=== PATIENT | female | born 1950 | race American Indian/Alaskan Native ===

== ENCOUNTER 2017-08-01 13:49 | Inpatient (IN) | payer MEDICARE, MEDICAID, OTHER ==
[~2017-08-01] VITALS: Ht 170.2 cm; Wt 119.1 kg
[~2017-08-01 13:49] MED LIST: ASPI81TA46 PO; CHOL100025 PO; DOXE25CA3 PO; FEBU80TA PO; LORA1TAB PO; MAGN500C16 PO; METO-411 PO; NORCO10T PO; POTA8TAB8 PO; ZOLP5TAB8 PO
[2017-08-01] MEDS ORDERED: normal saline 1000ML IV soln IVB ONE (13:55)
[2017-08-01] MEDS ORDERED: ondansetron/PF 4mg/2ml inj IV ONE (14:30)
[2017-08-01 14:31] LABS: BASOPHILS # (AUTO) 0.1 X10'3 (0-0.2); BASOPHILS % (AUTO) 0.5 % (0-1); EOSINOPHILS # (AUTO) 0.4 X10'3 (0-0.9); HEMOGLOBIN 12.1 g/dl (12.0-16.0); LYMPHOCYTES # (AUTO) 2.9 X10'3 (1.1-4.8); LYMPHOCYTES % (AUTO) 24.8 % (21-51); MEAN CORPUSCULAR HEMOGLOBIN 29.5 PG (27.0-31.0); MEAN CORPUSCULAR HGB CONC 33.7 % (33.0-36.5); MEAN CORPUSCULAR VOLUME 87.6 FL (78-98); MEAN PLATELET VOLUME 8.5 FL (7.4-10.4); MONOCYTES # (AUTO) 0.9 X10'3 (0-0.9); MONOCYTES % (AUTO) 7.4 % (2-12); NEUTROPHILS # (AUTO) 7.6 X10'3 (1.8-7.7); NEUTROPHILS % (AUTO) 64.3 % (42-75); PLATELET COUNT 328 X10'3 (140-440); RED CELL DISTRIBUTION WIDTH 14.9 % (11.5-14.5); WHITE BLOOD COUNT 11.8 X10'3 (4.5-11.0)
[2017-08-01 14:42] LABS: CLARITY,URINE CLEAR (Clear); COLOR,URINE YELLOW (Yellow); GLUCOSE, URINE NEGATIVE (Neg); KETONES,URINE NEGATIVE (Neg); LEUKOCYTE ESTERASE ,URINE NEGATIVE (Neg); NITRITES, URINE NEGATIVE (Neg); OCCULT BLOOD,URINE NEGATIVE (Neg); PH,URINE 5.5 (4.8-8.0); PROTEIN,URINE NEGATIVE (Neg); UROBILINOGEN,URINE 0.2 E.U/dL (0.2-1.0)
[2017-08-01 14:47] LABS: UA COLLECTION TYPE OTHER
[2017-08-01 14:55] LABS: ALANINE AMINOTRANSFERASE 21 U/L (12-78); ALBUMIN 3.1 G/DL (3.4-5.0); ALBUMIN/GLOBULIN RATIO 0.7 (1.1-1.5); ALKALINE PHOSPHATASE 83 IU/L (46-116); ANION GAP 6 (8-16); ASPARTATE AMINO TRANSFERASE 13 U/L (10-37); BILIRUBIN,TOTAL 0.5 MG/DL (0.1-1.0); BLOOD UREA NITROGEN 20 MG/DL (7-18); BUN/CREATININE RATIO 14.7 (6.6-38.0); CALCIUM 9.2 MG/DL (8.5-10.1); CHLORIDE 105 MMOL/L (99-107); CREATININE 1.36 MG/DL (0.40-0.90); GLUCOSE 110 MG/DL (70-104); LIPASE 90 U/L (73-393); POTASSIUM 4.2 MMOL/L (3.5-5.1); SODIUM 142 MMOL/L (135-145); TOTAL CARBON DIOXIDE 30.6 MMOL/L (24-32); TOTAL PROTEIN 7.7 G/DL (6.4-8.2); TROPONIN I < 0.04 NG/ML (0.0-0.05); eGFR 39 ML/MIN
[2017-08-01] MEDS ORDERED: LORazepam 2 mg/ml vial IV ONE (15:45)
[2017-08-01] MEDS ORDERED: diltiazem 5mg/ml 5ml inj. IV ONE (18:10)
[2017-08-01] MEDS: sodium chloride 0.45% 1,000 ML IV SCH (18:23)
[2017-08-01] MEDS ORDERED: magnesium hydroxide 30ml (MOM) UD suspension PO PRN (18:25)
[2017-08-01] MEDS ORDERED: mag hydrox/Alum hydrox/simeth 30ml oral suspension PO PRN (18:25)
[2017-08-01] MEDS ORDERED: amiodarone 150mg/dext, iso-os 100 ML IV ONE (18:35)
[2017-08-01] MEDS ORDERED: FEBUXOSTAT 80 MG PO PRN (18:35)
[2017-08-01] MEDS ORDERED: potassium chloride 8mEq ER tablet PO PRN (18:35)
[2017-08-01] MEDS ORDERED: zolpidem 5mg tablet PO PRN (18:35)
[2017-08-01] MEDS ORDERED: ULORIC 80 MG PO PRN (19:10)
[2017-08-01] MEDS: amiodarone/D5 450MG/250ML BAG 250 ML IV SCH (19:23)
[2017-08-01] MEDS ORDERED: non-formulary drug (Magnesium Oxide (Magnesium) 1 CAP) PO SCH (20:00)
[2017-08-01] MEDS ORDERED: sotalol 80mg tablet PO SCH (20:00)
[2017-08-01] MEDS: levoFLOXACIN-Levaquin 500mg/D5 100 ML IV SCH (21:20)
[2017-08-01] MEDS: magnesium oxide 400mg tablet PO SCH (21:20)
[2017-08-01] MEDS: metroNIDAZOLE-Flagyl 500mg/NS 100 ML IV SCH (21:20)
[2017-08-01] MEDS: LORazepam 1 MG tablet PO PRN (22:35)
[2017-08-01] MEDS: ondansetron/PF 4mg/2ml inj IV PRN (22:35)
[2017-08-02] VITALS (7 sets, daily range): BP systolic 106–119; BP diastolic 52–75
[2017-08-02 01:05] LABS: CLARITY,URINE CLEAR (Clear); COLOR,URINE YELLOW (Yellow); GLUCOSE, URINE NEGATIVE (Neg); KETONES,URINE NEGATIVE (Neg); LEUKOCYTE ESTERASE ,URINE NEGATIVE (Neg); NITRITES, URINE NEGATIVE (Neg); OCCULT BLOOD,URINE NEGATIVE (Neg); PROTEIN,URINE NEGATIVE (Neg); UROBILINOGEN,URINE 0.2 E.U/dL (0.2-1.0)
[2017-08-02 01:15] LABS: UA COLLECTION TYPE STRAIGHT CATH
[2017-08-02] MEDS: amiodarone/D5 450MG/250ML BAG 250 ML IV SCH (02:18)
[2017-08-02 03:04] LABS: BASOPHILS # (AUTO) 0.1 X10'3 (0-0.2); BASOPHILS % (AUTO) 0.9 % (0-1); EOSINOPHILS # (AUTO) 0.2 X10'3 (0-0.9); HEMATOCRIT 33.7 % (35.0-45.0); HEMOGLOBIN 11.1 g/dl (12.0-16.0); LYMPHOCYTES # (AUTO) 3.7 X10'3 (1.1-4.8); LYMPHOCYTES % (AUTO) 30.9 % (21-51); MEAN CORPUSCULAR HEMOGLOBIN 29.3 PG (27.0-31.0); MEAN CORPUSCULAR VOLUME 88.6 FL (78-98); MONOCYTES # (AUTO) 0.9 X10'3 (0-0.9); NEUTROPHILS # (AUTO) 6.9 X10'3 (1.8-7.7); NEUTROPHILS % (AUTO) 58.2 % (42-75); PLATELET COUNT 321 X10'3 (140-440); RED CELL DISTRIBUTION WIDTH 14.6 % (11.5-14.5); WHITE BLOOD COUNT 11.9 X10'3 (4.5-11.0)
[2017-08-02 03:22] LABS: ALANINE AMINOTRANSFERASE 18 U/L (12-78); ALBUMIN 2.7 G/DL (3.4-5.0); ALBUMIN/GLOBULIN RATIO 0.7 (1.1-1.5); ALKALINE PHOSPHATASE 67 IU/L (46-116); ANION GAP 6 (8-16); ASPARTATE AMINO TRANSFERASE 13 U/L (10-37); BILIRUBIN,TOTAL 0.4 MG/DL (0.1-1.0); BLOOD UREA NITROGEN 17 MG/DL (7-18); BUN/CREATININE RATIO 13.1 (6.6-38.0); CALCIUM 8.7 MG/DL (8.5-10.1); CHLORIDE 107 MMOL/L (99-107); GLUCOSE 107 MG/DL (70-104); POTASSIUM 4.7 MMOL/L (3.5-5.1); SODIUM 142 MMOL/L (135-145); TOTAL CARBON DIOXIDE 28.6 MMOL/L (24-32); TOTAL PROTEIN 6.8 G/DL (6.4-8.2); eGFR 41 ML/MIN
[2017-08-02] MEDS: acetaminophen 325mg tablet PO PRN ×2 (03:28→13:06)
[2017-08-02] MEDS ORDERED: HYDR-4069 PO (05:59)
[2017-08-02] MEDS ORDERED: AMLO-93 PO (05:59)
[2017-08-02 06:52] LABS: TROPONIN I < 0.04 NG/ML (0.0-0.05)
[2017-08-02] MEDS ORDERED: CHOLECALCIFEROL 10000 UNIT PO SCH (08:00)
[2017-08-02] MEDS ORDERED: vitamin D (cholecalciferol) 1,000 unit tablet PO SCH (08:00)
[2017-08-02] MEDS: LORazepam 1 MG tablet PO PRN ×2 (09:52→19:30)
[2017-08-02] MEDS: metroNIDAZOLE-Flagyl 500mg/NS 100 ML IV SCH ×2 (09:55)
[2017-08-02] MEDS: ondansetron/PF 4mg/2ml inj IV PRN (10:16)
[2017-08-02] MEDS: sodium chloride 0.45% 1,000 ML IV SCH ×2 (10:34→12:05)
[2017-08-02 10:36] LABS: MAGNESIUM 1.8 MG/DL (1.5-2.4)
[2017-08-02] MEDS: aspirin 81mg tablet.DR PO SCH (10:37)
[2017-08-02] MEDS: apixaban 5mg tablet PO SCH ×2 (10:38→19:30)
[2017-08-02] MEDS: magnesium oxide 400mg tablet PO SCH ×2 (10:39→19:30)
[2017-08-02] MEDS: vitamin D (cholecalciferol) 1,000 unit tablet PO SCH (10:40)
[2017-08-02] MEDS: sotalol 80mg tablet PO SCH (10:41)
[2017-08-02] MEDS ORDERED: HYDR-565 PO (10:50)
[2017-08-02] MEDS ORDERED: AMLO5TAB PO (10:50)
[2017-08-02] MEDS ORDERED: APIX5TAB3 PO (10:50)
[2017-08-02] MEDS ORDERED: ACET-2119 PO (10:52)
[2017-08-02] MEDS: levoFLOXACIN-Levaquin 500mg/D5 100 ML IV SCH (10:57)
[2017-08-02] MEDS ORDERED: acetaminophen 325mg tablet PO PRN (12:15)
[2017-08-02] MEDS: lactobacillus rhamnosus 10,000 MMU CELLS/CAPSULE PO SCH (19:30)
[2017-08-03] MEDS: acetaminophen 325mg tablet PO PRN ×2 (00:15→07:47)
[2017-08-03 03:00] VITALS: BP 119/56
[2017-08-03 05:09] LABS: BASOPHILS % (AUTO) 0.4 % (0-1); EOSINOPHILS # (AUTO) 0.4 X10'3 (0-0.9); EOSINOPHILS % (AUTO) 2.9 % (0-6); HEMOGLOBIN 10.8 g/dl (12.0-16.0); LYMPHOCYTES # (AUTO) 3.9 X10'3 (1.1-4.8); LYMPHOCYTES % (AUTO) 32.4 % (21-51); MEAN CORPUSCULAR HEMOGLOBIN 29.4 PG (27.0-31.0); MEAN CORPUSCULAR HGB CONC 33.6 % (33.0-36.5); MEAN CORPUSCULAR VOLUME 87.6 FL (78-98); MEAN PLATELET VOLUME 8.8 FL (7.4-10.4); MONOCYTES # (AUTO) 0.8 X10'3 (0-0.9); MONOCYTES % (AUTO) 6.7 % (2-12); NEUTROPHILS # (AUTO) 6.9 X10'3 (1.8-7.7); NEUTROPHILS % (AUTO) 57.6 % (42-75); PLATELET COUNT 308 X10'3 (140-440); RED BLOOD COUNT 3.66 X10'6 (4.20-5.60); RED CELL DISTRIBUTION WIDTH 14.5 % (11.5-14.5)
[2017-08-03 05:35] LABS: ALANINE AMINOTRANSFERASE 19 U/L (12-78); ALBUMIN 2.7 G/DL (3.4-5.0); ALBUMIN/GLOBULIN RATIO 0.7 (1.1-1.5); ALKALINE PHOSPHATASE 62 IU/L (46-116); ANION GAP 6 (8-16); ASPARTATE AMINO TRANSFERASE 10 U/L (10-37); BILIRUBIN,TOTAL 0.4 MG/DL (0.1-1.0); BLOOD UREA NITROGEN 17 MG/DL (7-18); BUN/CREATININE RATIO 11.3 (6.6-38.0); CALCIUM 8.9 MG/DL (8.5-10.1); CHLORIDE 107 MMOL/L (99-107); GLUCOSE 96 MG/DL (70-104); POTASSIUM 4.8 MMOL/L (3.5-5.1); SODIUM 143 MMOL/L (135-145); TOTAL PROTEIN 6.6 G/DL (6.4-8.2); eGFR 35 ML/MIN
[2017-08-03 06:00] VITALS: BP 107/51
[2017-08-03] MEDS: lactobacillus rhamnosus 10,000 MMU CELLS/CAPSULE PO SCH ×2 (07:38→19:41)
[2017-08-03] MEDS: sotalol 80mg tablet PO SCH ×2 (07:38→19:40)
[2017-08-03] MEDS: apixaban 5mg tablet PO SCH ×2 (07:39→19:41)
[2017-08-03] MEDS: magnesium oxide 400mg tablet PO SCH ×2 (07:39→19:41)
[2017-08-03] MEDS: aspirin 81mg tablet.DR PO SCH (07:39)
[2017-08-03] MEDS: vitamin D (cholecalciferol) 1,000 unit tablet PO SCH (07:39)
[2017-08-03] MEDS ORDERED: levoFLOXACIN-Levaquin 250mg/D5 50 ML IV SCH (08:00)
[2017-08-03] MEDS: ondansetron/PF 4mg/2ml inj IV PRN (10:27)
[2017-08-03] MEDS: LORazepam 1 MG tablet PO PRN ×2 (10:36→18:51)
[2017-08-03 11:00] VITALS: BP 119/56
[2017-08-03] MEDS: sodium chloride 0.45% 1,000 ML IV SCH ×2 (11:44→16:18)
[2017-08-03 15:00] VITALS: BP 108/63
[2017-08-03] MEDS: phenazopyridine 100mg tablet PO SCH (16:17)
[2017-08-03] MEDS ORDERED: amiodarone 200mg tablet PO ONE (18:50)
[2017-08-03 19:00] VITALS: BP 117/58
[2017-08-03] MEDS: amiodarone 200mg tablet PO SCH (19:18)
[2017-08-03 23:00] VITALS: BP 112/57
[2017-08-04] MEDS: LORazepam 1 MG tablet PO PRN ×3 (00:12→20:24)
[2017-08-04 03:00] VITALS: BP 117/69
[2017-08-04] MEDS: acetaminophen 325mg tablet PO PRN ×2 (04:09→20:24)
[2017-08-04] MEDS: sodium chloride 0.45% 1,000 ML IV SCH ×2 (04:56→20:21)
[2017-08-04 05:26] LABS: BASOPHILS % (AUTO) 0.4 % (0-1); EOSINOPHILS # (AUTO) 0.4 X10'3 (0-0.9); EOSINOPHILS % (AUTO) 2.8 % (0-6); HEMATOCRIT 32.4 % (35.0-45.0); HEMOGLOBIN 10.9 g/dl (12.0-16.0); LYMPHOCYTES # (AUTO) 3.6 X10'3 (1.1-4.8); LYMPHOCYTES % (AUTO) 28.1 % (21-51); MEAN CORPUSCULAR HEMOGLOBIN 29.4 PG (27.0-31.0); MEAN CORPUSCULAR HGB CONC 33.6 % (33.0-36.5); MEAN CORPUSCULAR VOLUME 87.6 FL (78-98); MEAN PLATELET VOLUME 9.7 FL (7.4-10.4); MONOCYTES # (AUTO) 0.8 X10'3 (0-0.9); MONOCYTES % (AUTO) 6.1 % (2-12); NEUTROPHILS % (AUTO) 62.6 % (42-75); PLATELET COUNT 329 X10'3 (140-440); RED BLOOD COUNT 3.69 X10'6 (4.20-5.60); RED CELL DISTRIBUTION WIDTH 14.4 % (11.5-14.5); WHITE BLOOD COUNT 12.8 X10'3 (4.5-11.0)
[2017-08-04 05:47] LABS: ALANINE AMINOTRANSFERASE 18 U/L (12-78); ALBUMIN 2.8 G/DL (3.4-5.0); ALBUMIN/GLOBULIN RATIO 0.7 (1.1-1.5); ALKALINE PHOSPHATASE 63 IU/L (46-116); ANION GAP 7 (8-16); ASPARTATE AMINO TRANSFERASE 14 U/L (10-37); BILIRUBIN,TOTAL 0.3 MG/DL (0.1-1.0); BLOOD UREA NITROGEN 12 MG/DL (7-18); BUN/CREATININE RATIO 8.3 (6.6-38.0); CALCIUM 8.8 MG/DL (8.5-10.1); CHLORIDE 106 MMOL/L (99-107); CREATININE 1.44 MG/DL (0.40-0.90); GLUCOSE 92 MG/DL (70-104); MAGNESIUM 1.7 MG/DL (1.5-2.4); POTASSIUM 4.4 MMOL/L (3.5-5.1); SODIUM 143 MMOL/L (135-145); TOTAL CARBON DIOXIDE 29.8 MMOL/L (24-32); TOTAL PROTEIN 6.9 G/DL (6.4-8.2); eGFR 36 ML/MIN
[2017-08-04 06:35] VITALS: BP 103/51
[2017-08-04] MEDS: aspirin 81mg tablet.DR PO SCH (08:32)
[2017-08-04] MEDS: sotalol 80mg tablet PO SCH ×2 (08:32→20:23)
[2017-08-04] MEDS: lactobacillus rhamnosus 10,000 MMU CELLS/CAPSULE PO SCH ×2 (08:33→20:23)
[2017-08-04] MEDS: phenazopyridine 100mg tablet PO SCH ×3 (08:33→20:23)
[2017-08-04] MEDS: magnesium oxide 400mg tablet PO SCH ×2 (08:33→20:24)
[2017-08-04] MEDS: vitamin D (cholecalciferol) 1,000 unit tablet PO SCH (08:33)
[2017-08-04] MEDS: amiodarone 200mg tablet PO SCH ×2 (08:33→20:23)
[2017-08-04] MEDS: apixaban 5mg tablet PO SCH ×2 (08:35→20:23)
[2017-08-04] MEDS: ondansetron/PF 4mg/2ml inj IV PRN (08:44)
[2017-08-04 11:00] VITALS: BP 111/65
[2017-08-04 15:00] VITALS: BP 130/76
[2017-08-04 18:00] VITALS: BP 125/63
[2017-08-04 22:00] VITALS: BP 116/71
[2017-08-05 02:00] VITALS: BP 120/59
[2017-08-05] MEDS: acetaminophen 325mg tablet PO PRN (02:43)
[2017-08-05] MEDS: LORazepam 1 MG tablet PO PRN ×2 (04:32→15:29)
[2017-08-05 05:42] LABS: BASOPHILS # (AUTO) 0.1 X10'3 (0-0.2); BASOPHILS % (AUTO) 0.5 % (0-1); EOSINOPHILS # (AUTO) 0.4 X10'3 (0-0.9); EOSINOPHILS % (AUTO) 3.7 % (0-6); HEMATOCRIT 30.5 % (35.0-45.0); HEMOGLOBIN 10.2 g/dl (12.0-16.0); LYMPHOCYTES # (AUTO) 3.2 X10'3 (1.1-4.8); LYMPHOCYTES % (AUTO) 28.2 % (21-51); MEAN CORPUSCULAR HEMOGLOBIN 29.6 PG (27.0-31.0); MEAN CORPUSCULAR HGB CONC 33.6 % (33.0-36.5); MEAN CORPUSCULAR VOLUME 88.2 FL (78-98); MEAN PLATELET VOLUME 9.2 FL (7.4-10.4); MONOCYTES # (AUTO) 0.9 X10'3 (0-0.9); MONOCYTES % (AUTO) 7.9 % (2-12); NEUTROPHILS # (AUTO) 6.7 X10'3 (1.8-7.7); NEUTROPHILS % (AUTO) 59.7 % (42-75); PLATELET COUNT 301 X10'3 (140-440); RED BLOOD COUNT 3.46 X10'6 (4.20-5.60); RED CELL DISTRIBUTION WIDTH 14.8 % (11.5-14.5); WHITE BLOOD COUNT 11.3 X10'3 (4.5-11.0)
[2017-08-05 06:11] LABS: ALANINE AMINOTRANSFERASE 18 U/L (12-78); ALBUMIN 2.6 G/DL (3.4-5.0); ALBUMIN/GLOBULIN RATIO 0.7 (1.1-1.5); ALKALINE PHOSPHATASE 58 IU/L (46-116); ANION GAP 5 (8-16); ASPARTATE AMINO TRANSFERASE 15 U/L (10-37); BILIRUBIN,TOTAL 0.4 MG/DL (0.1-1.0); BLOOD UREA NITROGEN 13 MG/DL (7-18); BUN/CREATININE RATIO 9.1 (6.6-38.0); CALCIUM 8.8 MG/DL (8.5-10.1); CHLORIDE 108 MMOL/L (99-107); CREATININE 1.43 MG/DL (0.40-0.90); GLUCOSE 90 MG/DL (70-104); SODIUM 143 MMOL/L (135-145); TOTAL CARBON DIOXIDE 29.6 MMOL/L (24-32); TOTAL PROTEIN 6.6 G/DL (6.4-8.2); eGFR 36 ML/MIN
[2017-08-05 06:35] VITALS: BP 122/52
[2017-08-05] MEDS: ondansetron/PF 4mg/2ml inj IV PRN (08:23)
[2017-08-05] MEDS: apixaban 5mg tablet PO SCH (09:13)
[2017-08-05] MEDS: lactobacillus rhamnosus 10,000 MMU CELLS/CAPSULE PO SCH (09:13)
[2017-08-05] MEDS: amiodarone 200mg tablet PO SCH (09:14)
[2017-08-05] MEDS: aspirin 81mg tablet.DR PO SCH (09:14)
[2017-08-05] MEDS: vitamin D (cholecalciferol) 1,000 unit tablet PO SCH (09:14)
[2017-08-05] MEDS: sotalol 80mg tablet PO SCH (09:14)
[2017-08-05] MEDS: phenazopyridine 100mg tablet PO SCH ×2 (09:14→15:28)
[2017-08-05] MEDS: magnesium oxide 400mg tablet PO SCH (09:18)
[2017-08-05 11:00] VITALS: BP 135/63
[2017-08-05 15:00] VITALS: BP 126/95
== END 2017-08-05 17:10 | DRG 309 ==
LOC: ER 13:49 → ED HOLD 18:23 → EDBEDREQ 08-02 06:47 → PCU 3S 08-02 08:29
PROVIDERS: ADMIT Emergency Medicine; ATTEND Family Medicine
DX: I48.91 Unspecified atrial fibrillation (principal); N39.0 Urinary tract infection, site not specified; Z68.41 Body mass index [BMI] 40.0-44.9, adult; I10 Essential (primary) hypertension; F32.9 Major depressive disorder, single episode, unspecified; F41.9 Anxiety disorder, unspecified; M10.9 Gout, unspecified; E66.9 Obesity, unspecified; G89.29 Other chronic pain; Z90.49 Acquired absence of other specified parts of digestive tract; Z90.710 Acquired absence of both cervix and uterus; Z88.2 Allergy status to sulfonamides; Z88.5 Allergy status to narcotic agent; Z79.01 Long term (current) use of anticoagulants; Z79.899 Other long term (current) drug therapy; Z79.82 Long term (current) use of aspirin; Z83.3 Family history of diabetes mellitus; Z82.3 Family history of stroke; Z82.5 Family history of asthma and other chronic lower respiratory diseases
CPT/HCPCS: 36415; 71045; 74176; 80053; 81003; 83605; 83690; 83735; 83880; 84443; 84484; 85025; 87070; 87088; 93005; 96361; 96374; 96375; 97110; 97116; 97162; 97530; 99285; A4315; A4353; A6250; J0282; J1956; J2060; J2405; J3490; J7030

== ENCOUNTER 2017-10-08 02:37 | Emergency (ER) | payer MEDICARE, MEDICAID, OTHER ==
[~2017-10-08] VITALS: Ht 584.7 cm; Wt 118.2 kg
[~2017-10-08 02:37] MED LIST changes: +ACET-2119 PO; +AMLO5TAB PO; +APIX5TAB3 PO; -CHOL100025 PO; -FEBU80TA PO; +HYDR-4069 PO; +HYDR-565 PO; -MAGN500C16 PO; -POTA8TAB8 PO
[2017-10-08] MEDS ORDERED: AMIO200T57 PO (03:17)
[2017-10-08] MEDS ORDERED: ALLO300T8 (03:17)
[2017-10-08] MEDS ORDERED: MAGN100T5 (03:17)
[2017-10-08] MEDS ORDERED: METR250T PO (03:17)
[2017-10-08] MEDS ORDERED: ERGO500014 PO (03:17)
[2017-10-08 03:22] LABS: BASOPHILS # (AUTO) 0.1 X10'3 (0-0.2); BASOPHILS % (AUTO) 0.4 % (0-1); EOSINOPHILS # (AUTO) 0.2 X10'3 (0-0.9); EOSINOPHILS % (AUTO) 1.7 % (0-6); HEMATOCRIT 38.1 % (35.0-45.0); HEMOGLOBIN 12.2 g/dl (12.0-16.0); LYMPHOCYTES # (AUTO) 3.1 X10'3 (1.1-4.8); LYMPHOCYTES % (AUTO) 22.7 % (21-51); MEAN CORPUSCULAR HGB CONC 32.2 % (33.0-36.5); MEAN CORPUSCULAR VOLUME 90.2 FL (78-98); MEAN PLATELET VOLUME 9.3 FL (7.4-10.4); MONOCYTES # (AUTO) 0.7 X10'3 (0-0.9); MONOCYTES % (AUTO) 5.3 % (2-12); NEUTROPHILS # (AUTO) 9.4 X10'3 (1.8-7.7); NEUTROPHILS % (AUTO) 69.9 % (42-75); PLATELET COUNT 372 X10'3 (140-440); RED BLOOD COUNT 4.22 X10'6 (4.20-5.60); RED CELL DISTRIBUTION WIDTH 14.3 % (11.5-14.5); WHITE BLOOD COUNT 13.5 X10'3 (4.5-11.0)
[2017-10-08 03:30] LABS: PROTHROMBIN TIME 10.5 SECONDS (9.0-12.0)
[2017-10-08] MEDS ORDERED: normal saline 1000ML IV soln IVB ONE (03:30)
[2017-10-08] MEDS ORDERED: morphine 4 MG/ML inj SYRINge IV ONE (03:30)
[2017-10-08] MEDS ORDERED: ondansetron/PF 4mg/2ml inj IV ONE (03:30)
[2017-10-08 03:35] LABS: ALANINE AMINOTRANSFERASE 30 U/L (12-78); ALBUMIN 3.1 G/DL (3.4-5.0); ALBUMIN/GLOBULIN RATIO 0.7 (1.1-1.5); ALKALINE PHOSPHATASE 100 IU/L (46-116); ANION GAP 10 (8-16); ASPARTATE AMINO TRANSFERASE 20 U/L (10-37); BILIRUBIN,TOTAL 0.3 MG/DL (0.1-1.0); CHLORIDE 104 MMOL/L (99-107); CREATININE 1.79 MG/DL (0.40-0.90); GLUCOSE 124 MG/DL (70-104); LIPASE 65 U/L (73-393); POTASSIUM 4.3 MMOL/L (3.5-5.1); SODIUM 140 MMOL/L (135-145); TOTAL CARBON DIOXIDE 25.8 MMOL/L (24-32); TOTAL PROTEIN 7.7 G/DL (6.4-8.2); eGFR 28 ML/MIN
[2017-10-08 03:36] LABS: BLOOD UREA NITROGEN 21 MG/DL (7-18); BUN/CREATININE RATIO 11.7 (6.6-38.0)
[2017-10-08 05:52] VITALS: BP 145/74
[2017-10-08] MEDS ORDERED: ONDA8TAB9 PO (06:04)
[2017-10-08] MEDS ORDERED: CIPR-259 PO (06:04)
[2017-10-08] MEDS ORDERED: ciprofloxacin 250mg tablet PO ONE (06:05)
[2017-10-08 06:22] LABS: CLARITY,URINE SLIGHTLY CLOUDY (Clear); COLOR,URINE YELLOW (Yellow); GLUCOSE, URINE NEGATIVE (Neg); KETONES,URINE NEGATIVE (Neg); LEUKOCYTE ESTERASE ,URINE LARGE (Neg); NITRITES, URINE NEGATIVE (Neg); OCCULT BLOOD,URINE TRACE-INTACT (Neg); PROTEIN,URINE NEGATIVE (Neg); UROBILINOGEN,URINE 0.2 E.U/dL (0.2-1.0)
[2017-10-08 06:43] LABS: UA COLLECTION TYPE CLN CATCH MIDSTREAM
[2017-10-08 06:44] LABS: BACTERIA,URINE 2+ /HPF (Neg); RBC,URINE 0-2 /HPF (0-2); SQUAMOUS EPITHELIAL CELL,UR MODERATE /LPF (FEW); WBC,URINE TNTC /HPF (0-4)
== END 2017-10-08 06:49 | disposition home or self-care (01) ==
LOC: ER 02:38
DX: K52.9 Noninfective gastroenteritis and colitis, unspecified (principal); I48.91 Unspecified atrial fibrillation; I10 Essential (primary) hypertension; F41.9 Anxiety disorder, unspecified; M10.9 Gout, unspecified; Z90.710 Acquired absence of both cervix and uterus; Z90.49 Acquired absence of other specified parts of digestive tract; Z88.2 Allergy status to sulfonamides; Z88.6 Allergy status to analgesic agent; Z79.899 Other long term (current) drug therapy
CPT/HCPCS: 36415; 74176; 80053; 81001; 83605; 83690; 85025; 85610; 87077; 87088; 87186; 93005; 96361; 96374; 96375; 99285; J2270; J2405; J7030

== ENCOUNTER 2018-10-03 19:44 | Emergency (ER) | payer MEDICARE, MEDICAID, OTHER ==
[~2018-10-03] VITALS: Ht 170.2 cm; Wt 126.8 kg
[~2018-10-03 19:44] MED LIST changes: +ALLO300T8; +AMIO200T40 PO; -ASPI81TA46 PO; +ERGO500014 PO; -HYDR-4069 PO; -HYDR-565 PO; -LORA1TAB PO; +MAGN100T5; +METR250T PO; -NORCO10T PO; +ONDA8TAB9 PO; -ZOLP5TAB8 PO
[2018-10-03] MEDS ORDERED: acetaminophen 325mg tablet PO ONE (20:15)
[2018-10-03] MEDS ORDERED: HYDROcodone/acetaminophen 5mg/325mg tablet PO ONE (20:15)
[2018-10-03] MEDS ORDERED: ketorolac trometh inj. 60 MG/2 ML VIAL IM ONE (20:15)
[2018-10-03] MEDS ORDERED: cyclobenzaprine 10mg tablet PO ONE (20:15)
[2018-10-03] MEDS ORDERED: ondansetron 4mg rapidly disintigrating tab PO ONE (20:15)
[2018-10-03] MEDS ORDERED: LIDOcaine 5% patch TP ONE (20:15)
[2018-10-03] MEDS ORDERED: ONDA8TAB6 PO (21:45)
[2018-10-03 22:03] LABS: CLARITY,URINE CLEAR (Clear); COLOR,URINE YELLOW (Yellow); GLUCOSE, URINE NEGATIVE (Neg); KETONES,URINE NEGATIVE (Neg); LEUKOCYTE ESTERASE ,URINE NEGATIVE (Neg); NITRITES, URINE POSITIVE (Neg); OCCULT BLOOD,URINE TRACE-INTACT (Neg); PROTEIN,URINE NEGATIVE (Neg); UROBILINOGEN,URINE 0.2 E.U/dL (0.2-1.0)
[2018-10-03 22:13] LABS: UA COLLECTION TYPE OTHER
[2018-10-03 22:21] LABS: BACTERIA,URINE FEW /HPF (Neg); RBC,URINE 0-2 /HPF (0-2); SQUAMOUS EPITHELIAL CELL,UR FEW /LPF (FEW); WBC,URINE 0-4 /HPF (0-4)
--- NOTE | 2018-10-03 22:22 | NUR ---
patient was gait tested per dr. anjum martell, and i had patient ambulate with out assist using a walker, patient was able to ambulate 40 ft with out assist using [facility] walker, patients spo2 98% on ra after ambulating
[2018-10-03] MEDS ORDERED: CEPH250T PO (22:44)
[2018-10-03] MEDS ORDERED: cephalexin 500mg capsule PO ONE (22:45)
[2018-10-04 00:50] VITALS: BP 128/61
== END 2018-10-03 22:35 | disposition home or self-care (01) ==
LOC: ER 19:44
DX: S39.012A Strain of muscle, fascia and tendon of lower back, initial encounter (principal); N39.0 Urinary tract infection, site not specified; I48.91 Unspecified atrial fibrillation; I10 Essential (primary) hypertension; G89.29 Other chronic pain; M10.9 Gout, unspecified; Z90.49 Acquired absence of other specified parts of digestive tract; Z90.710 Acquired absence of both cervix and uterus; Z98.890 Other specified postprocedural states; Z88.2 Allergy status to sulfonamides; Z88.5 Allergy status to narcotic agent; Z79.899 Other long term (current) drug therapy; Z60.2 Problems related to living alone; X50.1XXA Overexertion from prolonged static or awkward postures, initial encounter; Y93.89 Activity, other specified; Y92.89 Other specified places as the place of occurrence of the external cause; Y99.8 Other external cause status
CPT/HCPCS: 74176; 81001; 87088; 96372; 99284; J1885; P9612

== ENCOUNTER 2018-12-21 14:55 | Outpatient (CLI) | payer MEDICARE, MEDICAID, OTHER ==
[~2018-12-21 14:55] MED LIST changes: -AMIO200T40 PO; +AMIO200T61 PO; +ONDA8TAB6 PO
== END 2018-12-21 23:59 | disposition home or self-care (01) ==
LOC: RAD 14:55
PROVIDERS: ATTEND Family Medicine
DX: R13.14 Dysphagia, pharyngoesophageal phase (principal); I10 Essential (primary) hypertension; J45.909 Unspecified asthma, uncomplicated; Z87.891 Personal history of nicotine dependence; Z79.899 Other long term (current) drug therapy
CPT/HCPCS: 74230

== ENCOUNTER 2019-06-08 20:22 | Emergency (ER) | payer MEDICARE, MEDICAID, OTHER ==
[~2019-06-08] VITALS: Ht 170.2 cm; Wt 119.0 kg
[2019-06-08 20:54] LABS: BASOPHILS # (AUTO) 0.1 X10'3 (0-0.2); BASOPHILS % (AUTO) 0.9 % (0-1); EOSINOPHILS # (AUTO) 0.2 X10'3 (0-0.9); EOSINOPHILS % (AUTO) 1.5 % (0-6); HEMATOCRIT 39.4 % (35.0-45.0); LYMPHOCYTES # (AUTO) 3.8 X10'3 (1.1-4.8); LYMPHOCYTES % (AUTO) 29.3 % (21-51); MEAN CORPUSCULAR HEMOGLOBIN 30.4 PG (27.0-31.0); MEAN CORPUSCULAR HGB CONC 32.9 g/dL (33.0-36.5); MEAN CORPUSCULAR VOLUME 92.3 FL (78-98); MEAN PLATELET VOLUME 9.7 FL (7.4-10.4); MONOCYTES # (AUTO) 0.8 X10'3 (0-0.9); MONOCYTES % (AUTO) 5.9 % (2-12); NEUTROPHILS % (AUTO) 62.4 % (42-75); PLATELET COUNT 306 X10'3 (140-440); RED BLOOD COUNT 4.27 X10'6 (4.20-5.60); RED CELL DISTRIBUTION WIDTH 15.9 % (11.5-14.5); WHITE BLOOD COUNT 12.8 X10'3 (4.5-11.0)
[2019-06-08 21:14] LABS: ALANINE AMINOTRANSFERASE 23 U/L (12-78); ALBUMIN 3.3 G/DL (3.4-5.0); ALBUMIN/GLOBULIN RATIO 0.8 (1.1-1.5); ALKALINE PHOSPHATASE 92 IU/L (46-116); ANION GAP 7 (8-16); ASPARTATE AMINO TRANSFERASE 24 U/L (10-37); BILIRUBIN,TOTAL 0.2 MG/DL (0.1-1.0); BLOOD UREA NITROGEN 19 MG/DL (7-18); CALCIUM 9.2 MG/DL (8.5-10.1); CHLORIDE 107 MMOL/L (99-107); CREATININE 1.58 MG/DL (0.40-0.90); GLUCOSE 104 MG/DL (70-104); POTASSIUM 4.2 MMOL/L (3.5-5.1); SODIUM 145 MMOL/L (135-145); TOTAL CARBON DIOXIDE 30.6 MMOL/L (24-32); TOTAL PROTEIN 7.7 G/DL (6.4-8.2); eGFR 32 ML/MIN
[2019-06-08] MEDS ORDERED: metoprolol tartrate 50mg tablet PO ONE (22:35)
[2019-06-08] MEDS ORDERED: magnesium 2GM in 50ml NS 50 ML IV ONE (22:40)
[2019-06-08] MEDS: metoprolol tartrate 1mg/ml inj IV SCH ×3 (22:42→23:22)
[2019-06-08] MEDS ORDERED: normal saline 1000ML IV soln IVB ONE ×2 (22:45)
[2019-06-08 22:48] LABS: D-DIMER 0.29 MG/L FEU (0-0.50)
[2019-06-08 22:51] LABS: CLARITY,URINE SLIGHTLY CLOUDY (Clear); COLOR,URINE YELLOW (Yellow); GLUCOSE, URINE NEGATIVE (Neg); KETONES,URINE NEGATIVE (Neg); LEUKOCYTE ESTERASE ,URINE MODERATE (Neg); NITRITES, URINE POSITIVE (Neg); OCCULT BLOOD,URINE TRACE-INTACT (Neg); PH,URINE 5.5 (4.8-8.0); PROTEIN,URINE NEGATIVE (Neg); UROBILINOGEN,URINE 0.2 E.U/dL (0.2-1.0)
[2019-06-08] MEDS ORDERED: HYDR-4353 PO (23:03)
[2019-06-08] MEDS ORDERED: BACL20TA PO (23:03)
[2019-06-08] MEDS ORDERED: ZOLP5TAB8 PO (23:03)
[2019-06-08] MEDS ORDERED: OXYC-150 PO (23:03)
[2019-06-08] MEDS ORDERED: LORA-269 PO (23:03)
[2019-06-08 23:07] LABS: UA COLLECTION TYPE CLN CATCH MIDSTREAM
[2019-06-08 23:10] LABS: BACTERIA,URINE 2+ /HPF (Neg); RBC,URINE NONE SEEN /HPF (0-2); SQUAMOUS EPITHELIAL CELL,UR MODERATE /LPF (FEW)
[2019-06-08] MEDS ORDERED: CefTRIAXone 2gm/D5W 50ml 50 ML IV ONE (23:15)
[2019-06-08] MEDS ORDERED: CEPH500C5 PO (23:39)
[2019-06-08] MEDS ORDERED: acetaminophen 325mg tablet PO STA (23:53)
--- NOTE | 2019-06-08 23:54 | NUR ---
pt states she is developing a headache. Ordered Tylenol for her.
[2019-06-09 00:24] VITALS: BP 127/94
== END 2019-06-09 00:26 | disposition home or self-care (01) ==
LOC: ER 20:23
DX: I48.92 Unspecified atrial flutter (principal); N39.0 Urinary tract infection, site not specified; I48.91 Unspecified atrial fibrillation; I10 Essential (primary) hypertension; G89.29 Other chronic pain; F41.9 Anxiety disorder, unspecified; F32.9 Major depressive disorder, single episode, unspecified; Z90.49 Acquired absence of other specified parts of digestive tract; Z90.710 Acquired absence of both cervix and uterus; Z98.890 Other specified postprocedural states; Z60.2 Problems related to living alone; Z88.2 Allergy status to sulfonamides; Z88.5 Allergy status to narcotic agent; Z79.01 Long term (current) use of anticoagulants; Z79.899 Other long term (current) drug therapy
CPT/HCPCS: 36415; 71045; 80053; 81001; 83880; 84145; 84484; 85025; 85379; 93005; 96365; 96366; 96375; 96376; 99284; J0696; J3475; J7030; J3490

== ENCOUNTER 2019-07-05 20:21 | Emergency (ER) | payer MEDICARE, MEDICAID ==
[~2019-07-05] VITALS: Ht 170.2 cm; Wt 114.5 kg
[~2019-07-05 20:21] MED LIST changes: -ACET-2119 PO; -ALLO300T8; +ALLO300T8 PO; -AMIO200T61 PO; -AMLO5TAB PO; +BACL20TA PO; +CHOL500061 PO; +DILT240C90 PO; -ERGO500014 PO; +HYDR-4353 PO; -METR250T PO; -ONDA8TAB6 PO; -ONDA8TAB9 PO; +OXYC-150 PO; +ZOLP5TAB8 PO
[2019-07-05] MEDS ORDERED: ondansetron/PF 4mg/2ml inj IV ONE (20:40)
[2019-07-05] MEDS ORDERED: magnesium 2GM in 50ml NS 50 ML IV ONE (20:40)
[2019-07-05] MEDS ORDERED: diltiazem 5mg/ml 5ml inj. IV ONE (20:40)
[2019-07-05] MEDS ORDERED: normal saline 1000ml 1,000 ML IV ONE (20:40)
[2019-07-05] MEDS ORDERED: aspirin 81mg tab.chew PO ONE (20:40)
[2019-07-05 21:00] LABS: BASOPHILS # (AUTO) 0.3 X10'3 (0-0.2); BASOPHILS % (AUTO) 1.7 % (0-1); EOSINOPHILS # (AUTO) 0.1 X10'3 (0-0.9); EOSINOPHILS % (AUTO) 0.7 % (0-6); HEMATOCRIT 38.5 % (35.0-45.0); HEMOGLOBIN 12.9 g/dl (12.0-16.0); LYMPHOCYTES % (AUTO) 27.6 % (21-51); MEAN CORPUSCULAR HEMOGLOBIN 30.5 PG (27.0-31.0); MEAN CORPUSCULAR HGB CONC 33.6 g/dL (33.0-36.5); MEAN CORPUSCULAR VOLUME 90.8 FL (78-98); MEAN PLATELET VOLUME 9.6 FL (7.4-10.4); NEUTROPHILS # (AUTO) 9.2 X10'3 (1.8-7.7); PLATELET COUNT 323 X10'3 (140-440); RED BLOOD COUNT 4.24 X10'6 (4.20-5.60); RED CELL DISTRIBUTION WIDTH 15.8 % (11.5-14.5); WHITE BLOOD COUNT 14.5 X10'3 (4.5-11.0)
[2019-07-05 21:13] LABS: ALANINE AMINOTRANSFERASE 10 U/L (12-78); ALBUMIN 3.3 G/DL (3.4-5.0); ALBUMIN/GLOBULIN RATIO 0.7 (1.1-1.5); ALKALINE PHOSPHATASE 82 IU/L (46-116); ANION GAP 8 (8-16); ASPARTATE AMINO TRANSFERASE 16 U/L (10-37); BILIRUBIN,TOTAL 0.5 MG/DL (0.1-1.0); BLOOD UREA NITROGEN 25 MG/DL (7-18); BUN/CREATININE RATIO 14.5 (6.6-38.0); CALCIUM 9.4 MG/DL (8.5-10.1); CHLORIDE 104 MMOL/L (99-107); CREATININE 1.73 MG/DL (0.40-0.90); GLUCOSE 96 MG/DL (70-104); POTASSIUM 4.5 MMOL/L (3.5-5.1); SODIUM 141 MMOL/L (135-145); TOTAL CARBON DIOXIDE 29.3 MMOL/L (24-32); TOTAL PROTEIN 7.9 G/DL (6.4-8.2); eGFR 29 ML/MIN
[2019-07-05 21:20] LABS: MAGNESIUM 1.7 MG/DL (1.5-2.4)
[2019-07-05] MEDS ORDERED: LORazepam 2 mg/ml vial IV ONE (21:35)
[2019-07-05 22:13] LABS: CLARITY,URINE SLIGHTLY CLOUDY (Clear); COLOR,URINE YELLOW (Yellow); GLUCOSE, URINE NEGATIVE (Neg); KETONES,URINE NEGATIVE (Neg); LEUKOCYTE ESTERASE ,URINE MODERATE (Neg); NITRITES, URINE NEGATIVE (Neg); OCCULT BLOOD,URINE TRACE-INTACT (Neg); PROTEIN,URINE NEGATIVE (Neg); UROBILINOGEN,URINE 0.2 E.U/dL (0.2-1.0)
[2019-07-05 22:19] LABS: UA COLLECTION TYPE CLN CATCH MIDSTREAM
[2019-07-05 22:22] LABS: BACTERIA,URINE 2+ /HPF (Neg); RBC,URINE NONE SEEN /HPF (0-2); RENAL CELLS, URINE MANY /HPF; SQUAMOUS EPITHELIAL CELL,UR MANY /LPF (FEW); WBC,URINE 20-30 /HPF (0-4)
[2019-07-05] MEDS ORDERED: CefTRIAXone/D5W-Rocephin 1gm 50 ML IV ONE (23:00)
[2019-07-05] MEDS ORDERED: diltiazem-D5W 125mg/125ml 125 ML IV SCH (23:10)
[2019-07-05] MEDS ORDERED: diltiazem-NS 100mg/100ml 100 ML IV SCH (23:10)
[2019-07-05] MEDS ORDERED: propofol 10mg/ml 20ml vial IV ONE (23:20)
[2019-07-05] MEDS ORDERED: fentaNYL/PF 50MCG/1 ML 2ML syringe IV ONE (23:20)
--- NOTE | 2019-07-06 00:50 | NUR ---
PT UP AT BEDSIDE WITHOUT ASSIST, USING CANE, AMB WITH STEADY GAIT ABOUT 10 FEET,
[2019-07-06] MEDS ORDERED: NITR100C6 PO (00:56)
[2019-07-06 01:03] VITALS: BP 121/50
== END 2019-07-06 01:07 | disposition home or self-care (01) ==
LOC: ER 20:22
DX: I48.20 Chronic atrial fibrillation, unspecified (principal); I10 Essential (primary) hypertension; G89.29 Other chronic pain; F41.9 Anxiety disorder, unspecified; F32.9 Major depressive disorder, single episode, unspecified; Z90.49 Acquired absence of other specified parts of digestive tract; Z90.710 Acquired absence of both cervix and uterus; Z98.890 Other specified postprocedural states; Z60.2 Problems related to living alone; Z88.2 Allergy status to sulfonamides; Z88.5 Allergy status to narcotic agent; Z79.01 Long term (current) use of anticoagulants; Z79.899 Other long term (current) drug therapy
CPT/HCPCS: 36415; 71045; 80053; 81001; 83735; 83880; 84484; 85025; 92960; 93005; 94760; 96365; 96367; 96375; 99285; J0696; J2060; J2405; J3010; J3475; J7030; J3490

== ENCOUNTER 2021-02-01 03:44 | Emergency (ER) | payer MEDICARE, MEDICAID ==
[~2021-02-01] VITALS: Ht 167.6 cm; Wt 119.0 kg
[~2021-02-01 03:44] MED LIST changes: +NITR100C6 PO
[2021-02-01 04:41] LABS: BASOPHILS # (AUTO) 0.1 X10'3 (0-0.2); BASOPHILS % (AUTO) 0.5 % (0-1); EOSINOPHILS # (AUTO) 0.3 X10'3 (0-0.9); EOSINOPHILS % (AUTO) 2.1 % (0-6); HEMATOCRIT 38.9 % (35.0-45.0); HEMOGLOBIN 12.5 g/dl (12.0-16.0); LYMPHOCYTES # (AUTO) 3.4 X10'3 (1.1-4.8); LYMPHOCYTES % (AUTO) 23.3 % (21-51); MEAN CORPUSCULAR HEMOGLOBIN 29.4 PG (27.0-31.0); MEAN CORPUSCULAR VOLUME 91.7 FL (78-98); MEAN PLATELET VOLUME 9.3 FL (7.4-10.4); MONOCYTES # (AUTO) 1.2 X10'3 (0-0.9); MONOCYTES % (AUTO) 7.9 % (2-12); NEUTROPHILS # (AUTO) 9.6 X10'3 (1.8-7.7); NEUTROPHILS % (AUTO) 66.2 % (42-75); PLATELET COUNT 343 X10'3 (140-440); RED BLOOD COUNT 4.24 X10'6 (4.20-5.60); RED CELL DISTRIBUTION WIDTH 14.8 % (11.5-14.5); WHITE BLOOD COUNT 14.5 X10'3 (4.5-11.0)
[2021-02-01] MEDS ORDERED: LORazepam 1 MG tablet PO ONE (04:55)
[2021-02-01 04:59] LABS: ALANINE AMINOTRANSFERASE 19 U/L (12-78); ALBUMIN/GLOBULIN RATIO 0.7 (1.1-1.5); ALKALINE PHOSPHATASE 86 IU/L (46-116); ANION GAP 12 (8-16); ASPARTATE AMINO TRANSFERASE 14 U/L (10-37); BILIRUBIN,TOTAL 0.2 MG/DL (0.1-1.0); BLOOD UREA NITROGEN 16 MG/DL (7-18); BUN/CREATININE RATIO 10.3 (6.6-38.0); CALCIUM 8.8 MG/DL (8.5-10.1); CHLORIDE 106 MMOL/L (99-107); CREATININE 1.56 MG/DL (0.40-0.90); GLUCOSE 111 MG/DL (70-104); SODIUM 143 MMOL/L (135-145); TOTAL PROTEIN 7.5 G/DL (6.4-8.2); eGFR 33 ML/MIN
--- NOTE | 2021-02-01 05:19 | NUR ---
Note adriel in EDM - 02/01/21 at 0520 by JUANY PT HAS HAD A COUPLE OF BM'S THAT ARE YELLOW/BROWN MUCOID/LIQUID IN NATURE. PT REPORTS RECENT ANTIBIOTIC USE. ORDERED C DIFF TOXIN TO R\O C DIFF
[2021-02-01 05:25] LABS: MAGNESIUM 1.8 MG/DL (1.5-2.4)
[2021-02-01 05:27] LABS: CLARITY,URINE SLIGHTLY CLOUDY (Clear); COLOR,URINE YELLOW (Yellow); GLUCOSE, URINE NEGATIVE (Neg); KETONES,URINE NEGATIVE (Neg); LEUKOCYTE ESTERASE ,URINE NEGATIVE (Neg); NITRITES, URINE NEGATIVE (Neg); OCCULT BLOOD,URINE NEGATIVE (Neg); PROTEIN,URINE TRACE mg/dl (Neg); UA COLLECTION TYPE STRAIGHT CATH; UROBILINOGEN,URINE 0.2 E.U/dL (0.2-1.0)
[2021-02-01 05:28] LABS: SQUAMOUS EPITHELIAL CELL,UR MODERATE /LPF (FEW)
[2021-02-01 05:29] LABS: BACTERIA,URINE 1+ /HPF (Neg)
[2021-02-01 05:30] LABS: MUCUS STRANDS MODERATE /LPF (Neg)
[2021-02-01 05:31] LABS: RBC,URINE 0-2 /HPF (0-2)
--- NOTE | 2021-02-01 06:35 | NUR ---
Received patient in bed awake,chaperoned Dr. Marques while performing ultrasound to inner buttock.
[2021-02-01] MEDS ORDERED: clindamycin 150mg capsule PO ONE (06:45)
[2021-02-01] MEDS ORDERED: CLIN300C63 PO (07:44)
[2021-02-01 07:49] LABS: LIPASE 77 U/L (73-393)
[2021-02-01 08:39] VITALS: BP 144/85
[2021-02-07] MEDS ORDERED: LORA-269 PO (02:25)
[2021-02-07] MEDS ORDERED: METO-395 PO (03:56)
[2021-02-07] MEDS ORDERED: ALBU17AE26 (14:06)
== END 2021-02-01 08:41 | disposition home or self-care (01) ==
LOC: ER 03:45
DX: K57.92 Diverticulitis of intestine, part unspecified, without perforation or abscess without bleeding (principal); L03.317 Cellulitis of buttock; K86.9 Disease of pancreas, unspecified; R61 Generalized hyperhidrosis; I48.91 Unspecified atrial fibrillation; I10 Essential (primary) hypertension; G89.29 Other chronic pain; M10.9 Gout, unspecified; Z90.49 Acquired absence of other specified parts of digestive tract; Z90.710 Acquired absence of both cervix and uterus; Z98.890 Other specified postprocedural states; Z79.01 Long term (current) use of anticoagulants
CPT/HCPCS: 36415; 71045; 74176; 80053; 81001; 83690; 83735; 83880; 84484; 85025; 87088; 93005; 99285

== ENCOUNTER 2022-09-08 18:01 | Emergency (ER) | payer OTHER, MEDICAID ==
[~2022-09-08] VITALS: Ht 167.6 cm; Wt 122.7 kg
[~2022-09-08 18:01] MED LIST changes: -ALLO300T8 PO; -BACL20TA PO; +BUDE10.2 PO; +CHOL100025 PO; -CHOL500061 PO; +DILT-94; -DILT240C90 PO; -DOXE25CA3 PO; +DOXE50CA4 PO; +HYDR-3973 PO; -HYDR-4353 PO; +LACT1CAP75 PO; +LORA-269 PO; -MAGN100T5; +MAGN120C2 PO; -METO-411 PO; -NITR100C6 PO; +NYST15CR36 TOP; -OXYC-150 PO; +OXYC1TAB17 PO; +SOTA80TA46 PO; -ZOLP5TAB8 PO
[2022-09-08 19:01] VITALS: BP 175/78
[2022-09-08 19:36] LABS: BASOPHILS # (AUTO) 0.1 X10'3 (0-0.2); BASOPHILS % (AUTO) 1.3 % (0-1); EOSINOPHILS # (AUTO) 0.2 X10'3 (0-0.9); EOSINOPHILS % (AUTO) 1.9 % (0-6); HEMATOCRIT 35.5 % (35.0-45.0); HEMOGLOBIN 11.3 g/dl (12.0-16.0); LYMPHOCYTES # (AUTO) 2.8 X10'3 (1.1-4.8); LYMPHOCYTES % (AUTO) 24.5 % (21-51); MEAN CORPUSCULAR HEMOGLOBIN 28.7 PG (27.0-31.0); MEAN CORPUSCULAR HGB CONC 31.8 g/dL (33.0-36.5); MEAN CORPUSCULAR VOLUME 90.3 FL (78-98); MEAN PLATELET VOLUME 9.7 FL (7.4-10.4); MONOCYTES # (AUTO) 0.7 X10'3 (0-0.9); MONOCYTES % (AUTO) 5.6 % (2-12); NEUTROPHILS # (AUTO) 7.8 X10'3 (1.8-7.7); NEUTROPHILS % (AUTO) 66.7 % (42-75); PLATELET COUNT 289 X10'3 (140-440); RED BLOOD COUNT 3.93 X10'6 (4.20-5.60); RED CELL DISTRIBUTION WIDTH 15.1 % (11.5-14.5); WHITE BLOOD COUNT 11.7 X10'3 (4.5-11.0)
[2022-09-08 19:40] LABS: APTT 27 SECONDS (22-32)
[2022-09-08 19:42] LABS: ALANINE AMINOTRANSFERASE 28 U/L (12-78); ALBUMIN 3.2 G/DL (3.4-5.0); ALBUMIN/GLOBULIN RATIO 0.8 (1.1-1.5); ALKALINE PHOSPHATASE 79 IU/L (46-116); ANION GAP 7 (8-16); ASPARTATE AMINO TRANSFERASE 20 U/L (10-37); BILIRUBIN,TOTAL 0.3 MG/DL (0.1-1.0); BLOOD UREA NITROGEN 22 MG/DL (7-18); BUN/CREATININE RATIO 13.2 (10.0-20.0); CALCIUM 9.1 MG/DL (8.5-10.1); CHLORIDE 103 MMOL/L (99-107); CREATININE 1.67 MG/DL (0.40-0.90); GLUCOSE 100 MG/DL (70-104); LIPASE 120 U/L (73-393); POTASSIUM 3.8 MMOL/L (3.5-5.1); SODIUM 142 MMOL/L (135-145); TOTAL CARBON DIOXIDE 31.7 MMOL/L (24-32); TOTAL PROTEIN 7.2 G/DL (6.4-8.2); eGFR 30 ML/MIN
--- NOTE | 2022-09-08 21:20 | NUR ---
PT PLACED ONTO 2L NC PER MD
[2022-09-08 21:40] LABS: CLARITY,URINE CLOUDY (Clear); COLOR,URINE YELLOW (Yellow); GLUCOSE, URINE NEGATIVE (Neg); KETONES,URINE NEGATIVE (Neg); LEUKOCYTE ESTERASE ,URINE MODERATE (Neg); NITRITES, URINE NEGATIVE (Neg); OCCULT BLOOD,URINE SMALL (Neg); PROTEIN,URINE NEGATIVE (Neg); UROBILINOGEN,URINE 0.2 E.U/dL (0.2-1.0)
[2022-09-08 21:43] LABS: UA COLLECTION TYPE CLN CATCH MIDSTREAM
[2022-09-08 21:46] LABS: AMORPHOUS URATES 1+; BACTERIA,URINE 1+ /HPF (Neg); MUCUS STRANDS FEW /LPF (Neg); SQUAMOUS EPITHELIAL CELL,UR FEW /LPF (FEW); TRANSITIONAL EPI CELLS,URINE FEW /HPF; WBC CLUMPS,URINE FEW /HPF (NEGATIVE); WBC,URINE TNTC /HPF (0-4)
[2022-09-08] MEDS ORDERED: CEPH-585 PO (22:23)
[2022-09-08] MEDS ORDERED: CefTRIAXone/D5W-Rocephin 1gm 50 ML IV ONE (22:25)
--- NOTE | 2022-09-08 23:20 | NUR ---
[facility] CALLED FOR RETURN TRANSPORT
--- NOTE | 2022-09-09 00:23 | NUR ---
REPORT CALLED TO [facility] SENIOR QUALITY ASSURANCE SPECIALIST. [facility]FFE BEDSIDE FOR [place] [facility] CALLED FOR STATUS UPDATE
== END 2022-09-09 00:27 | disposition home or self-care (01) ==
LOC: ER 18:02
DX: N39.0 Urinary tract infection, site not specified (principal); I13.0 Hypertensive heart and chronic kidney disease with heart failure and stage 1 through stage 4 chronic kidney disease, or unspecified chronic kidney disease; N18.9 Chronic kidney disease, unspecified; J45.909 Unspecified asthma, uncomplicated; G89.29 Other chronic pain; M54.9 Dorsalgia, unspecified; F31.9 Bipolar disorder, unspecified; Z90.49 Acquired absence of other specified parts of digestive tract; Z98.890 Other specified postprocedural states; Z88.2 Allergy status to sulfonamides; Z88.5 Allergy status to narcotic agent; Z79.899 Other long term (current) drug therapy; Z79.1 Long term (current) use of non-steroidal anti-inflammatories (NSAID); Z79.2 Long term (current) use of antibiotics
CPT/HCPCS: 36415; 80053; 81001; 83690; 85025; 85610; 85730; 86885; 86900; 86901; 87077; 87088; 87186; 96365; 99284; J0696

== ENCOUNTER 2022-11-10 18:41 | Emergency (ER) | payer MEDICARE, MEDICAID ==
[~2022-11-10] VITALS: Ht 170.2 cm; Wt 119.1 kg
[~2022-11-10 18:41] MED LIST changes: +CEPH-585 PO
[2022-11-10] MEDS ORDERED: propofol 10mg/ml 20ml vial IV STA (19:18)
[2022-11-10] MEDS ORDERED: propofol 1000mg/100ml bottle 100 ML IV SCH (19:20)
[2022-11-10 19:24] LABS: BASOPHILS # (AUTO) 0.1 X10'3 (0-0.2); BASOPHILS % (AUTO) 1.1 % (0-1); EOSINOPHILS # (AUTO) 0.3 X10'3 (0-0.9); EOSINOPHILS % (AUTO) 2.1 % (0-6); HEMATOCRIT 38.7 % (35.0-45.0); HEMOGLOBIN 12.5 g/dl (12.0-16.0); LYMPHOCYTES % (AUTO) 33.8 % (21-51); MEAN CORPUSCULAR HEMOGLOBIN 28.9 PG (27.0-31.0); MEAN CORPUSCULAR HGB CONC 32.4 g/dL (33.0-36.5); MEAN CORPUSCULAR VOLUME 89.1 FL (78-98); MEAN PLATELET VOLUME 9.6 FL (7.4-10.4); MONOCYTES # (AUTO) 0.9 X10'3 (0-0.9); MONOCYTES % (AUTO) 7.3 % (2-12); NEUTROPHILS # (AUTO) 6.6 X10'3 (1.8-7.7); NEUTROPHILS % (AUTO) 55.7 % (42-75); PLATELET COUNT 395 X10'3 (140-440); RED BLOOD COUNT 4.35 X10'6 (4.20-5.60); WHITE BLOOD COUNT 11.8 X10'3 (4.5-11.0)
[2022-11-10] MEDS ORDERED: propofol (Diprivan) 10mg/ml 100ml bottle IV ONE (19:25)
[2022-11-10] MEDS ORDERED: ondansetron/PF 4mg/2ml inj IV ONE (19:30)
[2022-11-10 19:46] LABS: ALANINE AMINOTRANSFERASE 13 U/L (12-78); ALBUMIN 3.2 G/DL (3.4-5.0); ALBUMIN/GLOBULIN RATIO 0.7 (1.1-1.5); ALKALINE PHOSPHATASE 84 IU/L (46-116); ANION GAP 9 (8-16); ASPARTATE AMINO TRANSFERASE 18 U/L (10-37); BILIRUBIN,TOTAL 0.4 MG/DL (0.1-1.0); BLOOD UREA NITROGEN 16 MG/DL (7-18); BUN/CREATININE RATIO 10.5 (10.0-20.0); CALCIUM 9.4 MG/DL (8.5-10.1); CHLORIDE 102 MMOL/L (99-107); CREATININE 1.53 MG/DL (0.40-0.90); GLUCOSE 116 MG/DL (70-104); POTASSIUM 4.3 MMOL/L (3.5-5.1); SODIUM 139 MMOL/L (135-145); TOTAL CARBON DIOXIDE 28.4 MMOL/L (24-32); TOTAL PROTEIN 7.7 G/DL (6.4-8.2); eGFR 33 ML/MIN
[2022-11-10] MEDS ORDERED: magnesium 2GM in 50ml NS 50 ML IV ONE (19:55)
[2022-11-10] MEDS ORDERED: sotalol HCl 40mg (1/2 tablet) PO ONE (20:35)
[2022-11-10] MEDS ORDERED: temazepam 15mg capsule PO PRN (21:00)
[2022-11-10 21:34] LABS: CLARITY,URINE CLOUDY (Clear); COLOR,URINE YELLOW (Yellow); GLUCOSE, URINE NEGATIVE (Neg); KETONES,URINE NEGATIVE (Neg); LEUKOCYTE ESTERASE ,URINE LARGE (Neg); NITRITES, URINE NEGATIVE (Neg); OCCULT BLOOD,URINE TRACE-INTACT (Neg); PROTEIN,URINE NEGATIVE (Neg); UROBILINOGEN,URINE 0.2 E.U/dL (0.2-1.0)
[2022-11-10 21:41] LABS: UA COLLECTION TYPE CLN CATCH MIDSTREAM
[2022-11-10 21:42] LABS: BACTERIA,URINE 3+ /HPF (Neg); SQUAMOUS EPITHELIAL CELL,UR MODERATE /LPF (FEW); WBC,URINE TNTC /HPF (0-4)
[2022-11-10] MEDS ORDERED: FOSFOMYCIN TROMETHAMINE 3 GM PACKET PO ONE (22:10)
[2022-11-10] MEDS ORDERED: magnesium hydroxide 30ml (MOM) UD suspension PO PRN (22:20)
[2022-11-10] MEDS ORDERED: ondansetron/PF 4mg/2ml inj IV PRN (22:20)
[2022-11-10] MEDS ORDERED: acetaminophen 650mg rectal suppository RC PRN (22:20)
[2022-11-10] MEDS ORDERED: bisacodyl 10mg suppository rectal RC PRN (22:20)
[2022-11-10] MEDS ORDERED: mag hydrox/Alum hydrox/simeth 30ml oral suspension PO PRN (22:20)
[2022-11-10] MEDS ORDERED: ondansetron 4mg rapidly disintigrating tab PO PRN (22:20)
[2022-11-10] MEDS ORDERED: acetaminophen 325mg tablet PO PRN ×2 (22:20)
[2022-11-10] MEDS ORDERED: normal saline 1000ml 1,000 ML IV SCH (22:20)
[2022-11-10] MEDS ORDERED: dextrose 50%-water 50ml dispensing syringe IV PRN ×2 (22:25)
[2022-11-10] MEDS ORDERED: glucagon, human recombinant 1mg kit SUBCUT PRN (22:25)
[2022-11-10] MEDS ORDERED: insulin Lispro (HumaLOG) vial - multi-dose SQ SCH (22:25)
[2022-11-10] MEDS ORDERED: DEXTROSE 15 GM of carb/4 tabs (each vial/BOTTLE has 4 tablets) PO PRN ×2 (22:25)
[2022-11-10] MEDS ORDERED: MESSAGE TO PHARMACY PO ONE (22:25)
[2022-11-10] MEDS ORDERED: CefTRIAXone/D5W-Rocephin 1gm 50 ML IV SCH (22:26)
[2022-11-10 22:47] VITALS: BP 123/75
[2022-11-10 22:56] LABS: MAGNESIUM 1.7 MG/DL (1.5-2.4); PHOSPHORUS 3.3 MG/DL (2.3-4.5)
[2022-11-10 22:57] LABS: D-DIMER 0.42 MG/L FEU (0-0.50)
[2022-11-11] MEDS ORDERED: pantoprazole 40mg Tablet.DR PO SCH (07:30)
[2022-11-11] MEDS ORDERED: docusate sod 100mg capsule PO SCH (08:00)
[2022-11-11] MEDS ORDERED: insulin glargine (Lantus) pen - multi-dose SQ SCH (21:00)
== END 2022-11-10 22:48 | disposition home or self-care (01) ==
LOC: ER 18:42
DX: I48.20 Chronic atrial fibrillation, unspecified (principal); E78.5 Hyperlipidemia, unspecified; J45.909 Unspecified asthma, uncomplicated; I12.0 Hypertensive chronic kidney disease with stage 5 chronic kidney disease or end stage renal disease; N18.9 Chronic kidney disease, unspecified; E11.22 Type 2 diabetes mellitus with diabetic chronic kidney disease; Z88.5 Allergy status to narcotic agent; Z88.2 Allergy status to sulfonamides
CPT/HCPCS: 36415; 71045; 80053; 81001; 83036; 83735; 83880; 83930; 84100; 84484; 85025; 85379; 87077; 87088; 87186; 92960; 93005; 96365; 96375; 99285; J2405; J2704; J3475; J7030; 83605; 94760; J1815

== ENCOUNTER 2022-11-12 23:38 | Emergency (ER) | payer MEDICARE, MEDICAID ==
[~2022-11-12] VITALS: Ht 170.2 cm; Wt 119.1 kg
[2022-11-12 23:42] VITALS: TEMP 98
--- NOTE | 2022-11-13 00:16 | NUR ---
DR JONES AT [facility], PT CONVERTED TO SINUS RHYTHM [address] JONES. PT CONVERTING IN AND OUT OF AFIB RVR.
[2022-11-13] MEDS ORDERED: metoprolol tartrate 1mg/ml inj IV SCH (00:20)
[2022-11-13] MEDS ORDERED: magnesium 2GM in 50ml NS 50 ML IV ONE (00:20)
[2022-11-13] MEDS ORDERED: sotalol HCl 40mg (1/2 tablet) PO SCH (00:20)
[2022-11-13 00:22] LABS: HEMOGLOBIN 12.8 g/dl (12.0-16.0); MEAN CORPUSCULAR HEMOGLOBIN 29.1 PG (27.0-31.0)
[2022-11-13 00:24] LABS: BASOPHILS # (AUTO) 0.1 X10'3 (0-0.2); EOSINOPHILS # (AUTO) 0.2 X10'3 (0-0.9); EOSINOPHILS % (AUTO) 1.9 % (0-6); HEMATOCRIT 39.5 % (35.0-45.0); LYMPHOCYTES # (AUTO) 3.7 X10'3 (1.1-4.8); LYMPHOCYTES % (AUTO) 28.9 % (21-51); MEAN CORPUSCULAR HGB CONC 32.5 g/dL (33.0-36.5); MEAN CORPUSCULAR VOLUME 89.3 FL (78-98); MEAN PLATELET VOLUME 9.5 FL (7.4-10.4); MONOCYTES # (AUTO) 0.8 X10'3 (0-0.9); MONOCYTES % (AUTO) 6.4 % (2-12); NEUTROPHILS % (AUTO) 61.8 % (42-75); PLATELET COUNT 374 X10'3 (140-440); RED BLOOD COUNT 4.42 X10'6 (4.20-5.60); RED CELL DISTRIBUTION WIDTH 14.8 % (11.5-14.5); WHITE BLOOD COUNT 12.9 X10'3 (4.5-11.0)
[2022-11-13] MEDS ORDERED: LISI10TA27 PO (00:24)
[2022-11-13 00:26] LABS: ALANINE AMINOTRANSFERASE 11 U/L (12-78); ALBUMIN 3.2 G/DL (3.4-5.0); ALBUMIN/GLOBULIN RATIO 0.7 (1.1-1.5); ALKALINE PHOSPHATASE 86 IU/L (46-116); ANION GAP 9 (8-16); ASPARTATE AMINO TRANSFERASE 11 U/L (10-37); BILIRUBIN,TOTAL 0.4 MG/DL (0.1-1.0); BLOOD UREA NITROGEN 14 MG/DL (7-18); BUN/CREATININE RATIO 10.1 (10.0-20.0); CALCIUM 9.7 MG/DL (8.5-10.1); CHLORIDE 105 MMOL/L (99-107); CREATININE 1.39 MG/DL (0.40-0.90); GLUCOSE 117 MG/DL (70-104); POTASSIUM 4.4 MMOL/L (3.5-5.1); SODIUM 142 MMOL/L (135-145); TOTAL CARBON DIOXIDE 27.8 MMOL/L (24-32); TOTAL PROTEIN 7.6 G/DL (6.4-8.2); eGFR 37 ML/MIN
[2022-11-13 01:30] VITALS: BP 132/98; PULSE 84; RESP 16; O2SAT 96
== END 2022-11-13 01:29 | disposition home or self-care (01) ==
LOC: ER 23:38
DX: I48.0 Paroxysmal atrial fibrillation (principal); I10 Essential (primary) hypertension; J45.909 Unspecified asthma, uncomplicated; G89.29 Other chronic pain; M54.9 Dorsalgia, unspecified; F31.9 Bipolar disorder, unspecified; Z88.5 Allergy status to narcotic agent; Z79.899 Other long term (current) drug therapy
CPT/HCPCS: 36415; 80053; 83880; 84484; 85025; 93005; 96365; 96375; 99291; J3475; J3490; 96366; 99285